=== PATIENT | female | born 1985 | race American Indian/Alaskan Native ===

== ENCOUNTER 2017-03-06 04:53 | Emergency (ER) | payer OTHER ==
[2017-03-06] MEDS ORDERED: ZOFRAN IV ONE ×2 (05:10→07:21)
[2017-03-06] MEDS ORDERED: MORPHINE IV ONE (05:10)
[2017-03-06 05:35] LABS: Urine Drugs of Abuse Note Disclamer
[2017-03-06 05:45] LABS: Basophils % (Auto) 0.2 % (0.0-1.8); Hematocrit 40.4 % (30.3-42.9); Hemoglobin 13.9 gm/dl (10.1-14.3); Mean Corpuscular HGB Conc 34 % (30-34); Mean Corpuscular Hemoglobin 33 pg (28-32); Mean Corpuscular Volume 96 fl (79-97); Platelet Count 177 K/mm3 (140-440); Red Blood Count 4.22 M/mm3 (3.65-5.03); Red Cell Distribution Width 13.7 % (13.2-15.2); White Blood Count 17.4 K/mm3 (4.5-11.0)
[2017-03-06 06:02] LABS: Alanine Aminotransferase 21 units/L (7-56); Albumin 5.2 g/dL (3.9-5); Albumin/Globulin Ratio 1.6 %; Alkaline Phosphatase 50 units/L (35-129); Anion Gap 24 mmol/L; BUN/Creatinine Ratio 19; Blood Urea Nitrogen 15 mg/dL (7-17); Calcium 10.2 mg/dL (8.4-10.2); Carbon Dioxide 20 mmol/L (22-30); Chloride 99.2 mmol/L (98-107); Glucose 125 mg/dL (65-100); Potassium 3.8 mmol/L (3.6-5.0); Sodium 139 mmol/L (137-145); Total Protein 8.5 g/dL (6.3-8.2)
[2017-03-06 06:14] LABS: Bilirubin,Urine SM (Negative); Blood,Urine MOD (Negative); Ketones,Urine NEG (Negative); Leukocyte Esterase,Urine SM (Negative); Mucus,Urine 3+ /HPF; Nitrite,Urine NEG (Negative)
[2017-03-06] MEDS ORDERED: DILAUDID ONE (07:21)
[2017-03-06] MEDS ORDERED: PEPCID IV ONE (07:21)
[2017-03-06] MEDS ORDERED: DILAUDID IV ONE ×2 (07:21→11:50)
[2017-03-06] MEDS ORDERED: NACL 0.9% 1000 ML 1,000 ML IV ONE (07:21)
[2017-03-06] MEDS ORDERED: ZOFRAN ONE (07:21)
[2017-03-06] MEDS ORDERED: NACL ONE (07:26)
[2017-03-06] MEDS ORDERED: TORADOL IV ONE (07:26)
[2017-03-06] MEDS ORDERED: ROCEPHIN/NS 1 GM/50 ML 1 GM/50 ML BAG IV ONE (07:56)
--- NOTE | 2017-03-06 07:56 | Emergency Department Report ---
ED Abdominal Pain HPI - General Chief Complaint: Abdominal Pain Stated Complaint: ABD PAIN/N/V Time Seen by Provider: 03/06/17 07:07 Source: patient, EMS Mode of arrival: Stretcher Limitations: No Limitations - History of Present Illness Initial Comments: 31-year-old female with a past medical history of ovarian cysts presents to the hospital complaining of lower abdomianl pain x 3 days. Patient is in acute distress secondary to pain. She received morphine and Zofran prior to my evaluation without improvement. She complains of lower abdominal pain for the past 3 days it is 10/10 intensity without aggravating or alleviating factors. Patient started to vomit after arrival here. She was at [facility] 2 days ago for similar symptoms and diagnosed with the flu. No imaging performed at that time. Patient denies dysuria or fever. Severity scale (0 -10): 10 - Related Data Previous Rx's Medication Instructions Recorded Last Taken Type Ciprofloxacin HCl [Ciprofloxacin 500 mg PO Q12H #14 tab 02/20/15 Unknown Rx TAB] Acetaminophen/Codeine [Tylenol #3] 1 tab PO Q6H PRN #20 tab 06/10/15 Unknown Rx Doxycycline [Vibramycin CAP] 100 mg PO Q12HR #28 capsule 06/10/15 Unknown Rx HYDROcodone/ACETAMINOPHEN [[place] 1 each PO Q4-6H PRN #20 tablet 03/06/17 Unknown Rx 5-325 Tablet] Ibuprofen [Motrin 800 MG tab] 800 mg PO Q8HR PRN #30 tablet 03/06/17 Unknown Rx Nitrofurantoin Monohyd/M-Cryst 100 mg PO BID #10 capsule 03/06/17 Unknown Rx [Macrobid 100 mg Capsule] Ondansetron [Zofran TAB] 4 mg PO Q8HR PRN #20 tablet 03/06/17 Unknown Rx metroNIDAZOLE [Flagyl TAB] 500 mg PO BID #14 tablet 03/06/17 Unknown Rx Allergies Allergy/AdvReac Type Severity Reaction Status Date / Time No Known Allergies Allergy Verified 02/19/15 02:16 ED Review of Systems ROS: Stated complaint: ABD PAIN/N/V Other details as noted in HPI Comment: All other systems reviewed and negative Other: Constitutional: No fevers chills Eyes: No eye pain visual changes ENT: No ear pain or throat pain Neck: Denies pain Respiratory: Denies cough wheezing shortness of breath Cardiovascular: Denies chest pain, palpitations, syncope GI: As per HPI : Denies dysuria Musculoskeletal: Denies back pain Skin: Denies rash Neurologic: Denies headache, numbness, weakness Psychiatric: Denies suicidal ideation, hallucinations ED Past Medical Hx - Past Medical History Hx Congestive Heart Failure: No Hx Diabetes: No Hx Asthma: No Hx COPD: No Additional medical history: ovarian cysts - Social History Smoking Status: Current Every Day Smoker Substance Use Type: None - Medications Home Medications: Home Medications Medication Instructions Recorded Confirmed Last Taken Type Ciprofloxacin HCl [Ciprofloxacin 500 mg PO Q12H #14 tab 02/20/15 Unknown Rx TAB] Acetaminophen/Codeine [Tylenol #3] 1 tab PO Q6H PRN #20 tab 06/10/15 Unknown Rx Doxycycline [Vibramycin CAP] 100 mg PO Q12HR #28 capsule 06/10/15 Unknown Rx HYDROcodone/ACETAMINOPHEN [[place] 1 each PO Q4-6H PRN #20 tablet 03/06/17 Unknown Rx 5-325 Tablet] Ibuprofen [Motrin 800 MG tab] 800 mg PO Q8HR PRN #30 tablet 03/06/17 Unknown Rx Nitrofurantoin Monohyd/M-Cryst 100 mg PO BID #10 capsule 03/06/17 Unknown Rx [Macrobid 100 mg Capsule] Ondansetron [Zofran TAB] 4 mg PO Q8HR PRN #20 tablet 03/06/17 Unknown Rx metroNIDAZOLE [Flagyl TAB] 500 mg PO BID #14 tablet 03/06/17 Unknown Rx ED Physical Exam - General Limitations: No Limitations - Other Other exam information: General: By the distress secondary to pain, tearful Head exam: Atraumatic, normocephalic Eyes exam: Normal appearance ENT: Moist mucous membrane, normal oropharynx Neck exam: Normal inspection, full range of motion Respiratory exam: Clear to auscultation bilateral, no wheezes, rales, crackles Cardiovascular: Normal rate and rhythm, normal heart sounds Abdomen: Soft, nondistended, lower abdominal pain but not tender on exam, with normal bowel sounds, no rebound, or guarding : No discharge, no CMT or adnexal tenderness, no external vaginal lesions Extremity: Full range of motion normal inspection no deformity Back: Normal Inspection, full range of motion, no tenderness Neurologic: Alert, oriented x3, cranial nerves intact, no motor or sensory deficit Skin: Warm, dry, intact ED Course Vital Signs 03/06/17 03/06/17 03/06/17 05:03 05:29 06:42 Temperature 97.9 F Pulse Rate 72 72 Respiratory 18 20 16 Rate Blood Pressure 118/56 Blood Pressure 118/56 138/69 [Left] O2 Sat by Pulse 99 99 99 Oximetry - Reevaluation(s) Reevaluation #1: 03/06/17 11:58 Pain improved after Dilaudid, Toradol, Zofran. Patient received 1 L normal saline. Patient received Rocephin for UTI and by mouth Flagyl for bacterial vaginosis. ED Medical Decision Making - Lab Data Result diagrams: 03/06/17 05:25 03/06/17 05:25 Lab Results 03/06/17 03/06/17 03/06/17 Range/Units 05:25 05:25 05:29 WBC 17.4 H (4.5-11.0) K/mm3 RBC 4.22 (3.65-5.03) M/mm3 Hgb 13.9 (10.1-14.3) gm/dl Hct 40.4 (30.3-42.9) % MCV 96 (79-97) fl MCH 33 H (28-32) pg MCHC 34 (30-34) % RDW 13.7 (13.2-15.2) % Plt Count 177 (140-440) K/mm3 Lymph % (Auto) 19.6 (13.4-35.0) % [place] % (Auto) 7.9 H (0.0-7.3) % Eos % (Auto) 0.0 (0.0-4.3) % Baso % (Auto) 0.2 (0.0-1.8) % Lymph # 3.4 (1.2-5.4) K/mm3 [place] # 1.4 H (0.0-0.8) K/mm3 Eos # 0.0 (0.0-0.4) K/mm3 Baso # 0.0 (0.0-0.1) K/mm3 Seg Neutrophils % 72.3 H (40.0-70.0) % Seg Neutrophils # 12.6 H (1.8-7.7) K/mm3 Sodium 139 (137-145) mmol/L Potassium 3.8 (3.6-5.0) mmol/L Chloride 99.2 (98-107) mmol/L Carbon Dioxide 20 L (22-30) mmol/L Anion Gap 24 mmol/L BUN 15 (7-17) mg/dL Creatinine 0.8 (0.7-1.2) mg/dL Estimated GFR > 60 ml/min BUN/Creatinine Ratio 19 % Glucose 125 H (65-100) mg/dL Calcium 10.2 (8.4-10.2) mg/dL Total Bilirubin 0.80 (0.1-1.2) mg/dL AST 24 (5-40) units/L ALT 21 (7-56) units/L Alkaline Phosphatase 50 (35-129) units/L Total Protein 8.5 H (6.3-8.2) g/dL Albumin 5.2 H (3.9-5) g/dL Albumin/Globulin Ratio 1.6 % Urine Color Rosa M (Yellow) Urine Turbidity Clear (Clear) Urine pH 5.0 (5.0-7.0) Ur Specific [place] 1.034 H (1.003-1.030) Urine Protein 100 mg/dl (Negative) mg/dL Urine Glucose (UA) 50 (Negative) mg/dL Urine Ketones Neg (Negative) mg/dL Urine Blood Mod (Negative) Urine Nitrite Neg (Negative) Urine Bilirubin Sm (Negative) Urine Ictotest Positive (Negative) Urine Urobilinogen 2.0 (<2.0) mg/dL Ur Leukocyte Esterase Sm (Negative) Urine WBC (Auto) 13.0 H (0.0-6.0) /HPF Urine RBC (Auto) 30.0 (0.0-6.0) /HPF U Epithel Cells (Auto) 101.0 H (0-13.0) /HPF Calcium Oxalate Crystal 2+ Hyaline Casts 24 /LPF Urine Mucus 3+ /HPF Urine HCG, Qual Negative (Negative) Urine Opiates Screen Urine Methadone Screen Ur Barbiturates Screen Ur Phencyclidine Scrn Ur Amphetamines Screen U Benzodiazepines Scrn Urine Cocaine Screen U Marijuana (THC) Screen Drugs of Abuse Note 03/06/17 Range/Units 05:29 WBC (4.5-11.0) K/mm3 RBC (3.65-5.03) M/mm3 Hgb (10.1-14.3) gm/dl Hct (30.3-42.9) % MCV (79-97) fl MCH (28-32) pg MCHC (30-34) % RDW (13.2-15.2) % Plt Count (140-440) K/mm3 Lymph % (Auto) (13.4-35.0) % [place] % (Auto) (0.0-7.3) % Eos % (Auto) (0.0-4.3) % Baso % (Auto) (0.0-1.8) % Lymph # (1.2-5.4) K/mm3 [place] # (0.0-0.8) K/mm3 Eos # (0.0-0.4) K/mm3 Baso # (0.0-0.1) K/mm3 Seg Neutrophils % (40.0-70.0) % Seg Neutrophils # (1.8-7.7) K/mm3 Sodium (137-145) mmol/L Potassium (3.6-5.0) mmol/L Chloride (98-107) mmol/L Carbon Dioxide (22-30) mmol/L Anion Gap mmol/L BUN (7-17) mg/dL Creatinine (0.7-1.2) mg/dL Estimated GFR ml/min BUN/Creatinine Ratio % Glucose (65-100) mg/dL Calcium (8.4-10.2) mg/dL Total Bilirubin (0.1-1.2) mg/dL AST (5-40) units/L ALT (7-56) units/L Alkaline Phosphatase (35-129) units/L Total Protein (6.3-8.2) g/dL Albumin (3.9-5) g/dL Albumin/Globulin Ratio % Urine Color (Yellow) Urine Turbidity (Clear) Urine pH (5.0-7.0) Ur Specific [place] (1.003-1.030) Urine Protein (Negative) mg/dL Urine Glucose (UA) (Negative) mg/dL Urine Ketones (Negative) mg/dL Urine Blood (Negative) Urine Nitrite (Negative) Urine Bilirubin (Negative) Urine Ictotest (Negative) Urine Urobilinogen (<2.0) mg/dL Ur Leukocyte Esterase (Negative) Urine WBC (Auto) (0.0-6.0) /HPF Urine RBC (Auto) (0.0-6.0) /HPF U Epithel Cells (Auto) (0-13.0) /HPF Calcium Oxalate Crystal Hyaline Casts /LPF Urine Mucus /HPF Urine HCG, Qual (Negative) Urine Opiates Screen Presumptive negative Urine Methadone Screen Presumptive negative Ur Barbiturates Screen Presumptive negative Ur Phencyclidine Scrn Presumptive negative Ur Amphetamines Screen Presumptive negative U Benzodiazepines Scrn Presumptive positive Urine Cocaine Screen Presumptive negative U Marijuana (THC) Screen Presumptive positive Drugs of Abuse Note Disclamer - Radiology Data Radiology results: report reviewed CT of the pelvis IV contrast: Functional ovarian cyst that are small. Small- volume of physiologic free fluid noted. - Medical Decision Making Plan to discharge patient home with pain medication and antibiotics for UTI and bacterial vaginosis. Outpatient follow-up will be encouraged. Patient states she has tramadol currently but is not helping and therefore will prescribed a stronger pain medication - Differential Diagnosis PID, renal colic, appendicitis, diverticulitis, ovarian cyst, torsion Critical Care Time: No Critical care attestation.: If time is entered above; I have spent that time in minutes in the direct care of this critically ill patient, excluding procedure time. ED Disposition Clinical Impression: UTI (urinary tract infection), Suprapubic pain, Ovarian cyst, Bacterial vaginitis Disposition: TO HOME OR SELFCARE Is pt being admited?: No Does the pt Need Aspirin: No Condition: Stable Instructions: Bacterial Vaginosis (ED), Urinary Tract Infection in Women (ED), Ovarian Cyst (ED) Additional Instructions: Take the medication as prescribed. Follow-up with your primary care doctor or the doctor/clinic provided. Return if symptoms worsen. Prescriptions: HYDROcodone/ACETAMINOPHEN [[place] 5-325 Tablet] 1 each PO Q4-6H PRN #20 tablet PRN Reason: Pain Ibuprofen [Motrin 800 MG tab] 800 mg PO Q8HR PRN #30 tablet PRN Reason: pain metroNIDAZOLE [Flagyl TAB] 500 mg PO BID #14 tablet Nitrofurantoin Monohyd/M-Cryst [Macrobid 100 mg Capsule] 100 mg PO BID #10 capsule Ondansetron [Zofran TAB] 4 mg PO Q8HR PRN #20 tablet PRN Reason: Vomiting Referrals: [facility] [Provider Group] - 3-5 Days MARQUES SALAZAR MD [Staff Physician] - 3-5 Days Forms: STI Treatment and Prevention Time of Disposition: 12:02
--- NOTE | 2017-03-06 08:20 | Cat Scan Report ---
FINAL REPORT EXAM: CT ABDOMEN PELVIS W CON HISTORY: lower abdominal pain, vomiting, hematuria TECHNIQUE: CT images are acquired through the Abdomen and Pelvis following intravenous administration of contrast. Transaxial, coronal and sagittal reformations are provided. PRIORS: 06/10/2015 FINDINGS: Partially visualized intrathoracic contents are unremarkable. The liver, gallbladder, pancreas, spleen, and adrenal glands are unremarkable. Kidneys show no worrisome lesions, hydronephrosis, or calculi. Urinary bladder is unremarkable. Small and large bowel are normal in caliber. Appendix is normal. No free air, free fluid, or lymphadenopathy identified. Aorta is normal in course and caliber. Anteverted uterus. Functional ovarian cysts are noted. Physiologic free fluid in the pelvis. Superficial soft tissues are unremarkable. No acute or aggressive appearing skeletal findings. IMPRESSION: No acute findings in the abdomen or pelvis. Functional ovarian cysts with likely small volume of physiologic free fluid are noted in the pelvis. Consider follow-up pelvic ultrasound if there is concern for gynecologic etiology of patient's symptoms.
[2017-03-06] MEDS ORDERED: FLAGYL PO ONE (11:50)
[2017-03-06 12:29] VITALS: BP 104/68
== END 2017-03-06 12:33 | disposition home or self-care (01) ==
LOC: ED 04:53
DX: N39.0 Urinary tract infection, site not specified (principal); N83.209 Unspecified ovarian cyst, unspecified side; N76.0 Acute vaginitis; F17.210 Nicotine dependence, cigarettes, uncomplicated
CPT/HCPCS: 36415; 74177; 80053; 80307; 81001; 81025; 85025; 87210; 87591; 96361; 96365; 96375; 96376; 99285; J0696; J1170; J1885; J2270; J2405; J7030; Q9967